=== PATIENT | female | born 1950 | race Caucasian/White ===

== ENCOUNTER → 2017-06-01 | Outpatient (CLI) | payer MEDICARE, BC ==
[2017-03-20 08:58] VITALS: BMI 29.9
[~2017-06-01] MED LIST: ALB17R IH; ALB17R INH; ALB18R INH; AMLO-99 PO; ASPI81TA15 PO; AZIT-18 PO; AZIT-9 PO; CALC400T60 PO; CALC667C8 PO; CELLC500PT PO; CEP500 PO; CEPH500C24 PO; CHOL200074 PO; CIN30PT PO; CINA60TA2 PO; CINA90TA2 PO; CIPR-344 PO; CLO1 PO; CLO5 PO; CLON-327 PO; CLON-393 PO; DIAZ-308 PO; DOCU-442 PO; FOLI1CAP PO; FOLI1CAP13 PO; FOLI1CAP19 PO; FUR80 PO; FURO-45 PO; FURO80TA PO; FURO80TA70 PO; FUROSEMIDE 160 MG PO; GAB100 PO; HYDR-2975 PO; HYDR-4309 PO; HYDR100T25 PO; IBUP-56 PO; INSU100C14 SQ; INSU100I35 SQ; INSU100V24 SQ; LABE200T31 PO; LANI SC; LANI SUBQ; MAGNESIUM PO; MECL25TA9 PO; MET50 PO; METO25TA89 PO; NIFE20CA8 PO; NPH,100V12 SQ; OMEP-114 PO; ONDA4TAB PO; OXYC-854 PO; PARICALCITOL IV; PER PO; POLY17PO25 PO; POT10 PO; POTA2.5T7 PO; PRAV10TA45 PO; PRAV10TA46 PO; PRE20 PO; PRE5 PO; PRO25 PO; SCOT TD; SENN8.6T37 PO; TACR1CAP15 PO; TUM500 PO; [UNRECOGNIZED DRUG - CODE] PO; [UNRECOGNIZED DRUG - CODE] PO; [UNRECOGNIZED DRUG - CODE] PO
[2017-06-01 09:39] LABS: PLATELET COUNT, AUTOMATED 176 K/uL (150-450)
== END ==
LOC: LAB 08:52
PROVIDERS: ATTEND Internal Medicine Nephrology
DX: Z94.0 Kidney transplant status (principal); E21.2 Other hyperparathyroidism; I10 Essential (primary) hypertension; D64.9 Anemia, unspecified; I25.10 Atherosclerotic heart disease of native coronary artery without angina pectoris
CPT/HCPCS: 36415; 80197; 82040; 82247; 82310; 82374; 82435; 82565; 82570; 82947; 83735; 83970; 84075; 84100; 84132; 84155; 84156; 84295; 84450; 84460; 84520; 85025

== ENCOUNTER → 2017-07-10 | Outpatient (CLI) | payer MEDICARE, BC ==
[2017-03-20 08:58] VITALS: BMI 29.9
== END ==
LOC: LAB 09:11
PROVIDERS: ATTEND Internal Medicine Nephrology
DX: E11.21 Type 2 diabetes mellitus with diabetic nephropathy (principal); Z79.4 Long term (current) use of insulin; Z94.0 Kidney transplant status
CPT/HCPCS: 36415; 82465; 83718; 84478; 87799

== ENCOUNTER → 2017-10-01 | Outpatient (CLI) | payer MEDICARE, BC ==
[2017-03-20 08:58] VITALS: BMI 29.9
[2017-10-01 09:23] LABS: PLATELET COUNT, AUTOMATED 174 K/uL (150-450)
== END ==
LOC: LAB 08:55
PROVIDERS: ATTEND Internal Medicine Nephrology
DX: I10 Essential (primary) hypertension (principal); Z94.0 Kidney transplant status; I25.10 Atherosclerotic heart disease of native coronary artery without angina pectoris; D64.9 Anemia, unspecified; E11.9 Type 2 diabetes mellitus without complications; R80.9 Proteinuria, unspecified; E21.2 Other hyperparathyroidism
CPT/HCPCS: 36415; 80197; 82040; 82247; 82310; 82374; 82435; 82565; 82570; 82947; 83735; 83970; 84075; 84100; 84132; 84155; 84156; 84295; 84450; 84460; 84520; 85025

== ENCOUNTER → 2017-12-20 | Outpatient (CLI) | payer MEDICARE, BC ==
[2017-03-20 08:58] VITALS: BMI 29.9
[~2017-12-20] MED LIST changes: -LABE200T31 PO; +LABE200T35 PO
[2017-12-20 09:39] LABS: PLATELET COUNT, AUTOMATED 160 K/uL (150-450)
== END ==
LOC: LAB 09:04
PROVIDERS: ATTEND Internal Medicine Nephrology
DX: I10 Essential (primary) hypertension (principal); I25.10 Atherosclerotic heart disease of native coronary artery without angina pectoris; Z94.0 Kidney transplant status; D64.9 Anemia, unspecified; E11.9 Type 2 diabetes mellitus without complications; R80.9 Proteinuria, unspecified; E21.2 Other hyperparathyroidism
CPT/HCPCS: 36415; 80197; 82040; 82247; 82310; 82374; 82435; 82565; 82570; 82947; 83735; 83970; 84075; 84100; 84132; 84155; 84156; 84295; 84450; 84460; 84520; 85025

== ENCOUNTER → 2018-04-25 | Outpatient (CLI) | payer MEDICARE, BC ==
[2017-03-20 08:58] VITALS: BMI 29.9
[~2018-04-25] MED LIST changes: +AMLO-113 PO; -AMLO-99 PO; -HYDR-4309 PO; +HYDR-653 PO
[2018-04-25 09:43] LABS: PLATELET COUNT, AUTOMATED 191 K/uL (150-450)
== END ==
LOC: LAB 09:10
PROVIDERS: ATTEND Internal Medicine Nephrology
DX: Z94.0 Kidney transplant status (principal); N18.2 Chronic kidney disease, stage 2 (mild); E83.52 Hypercalcemia; R80.9 Proteinuria, unspecified; I10 Essential (primary) hypertension; E11.22 Type 2 diabetes mellitus with diabetic chronic kidney disease; Z79.4 Long term (current) use of insulin; D64.9 Anemia, unspecified
CPT/HCPCS: 36415; 80197; 82040; 82247; 82310; 82374; 82435; 82565; 82570; 82947; 83735; 83970; 84075; 84100; 84132; 84155; 84156; 84295; 84450; 84460; 84520; 85025

== ENCOUNTER → 2018-07-03 | Outpatient (CLI) | payer MEDICARE, BC ==
[2017-03-20 08:58] VITALS: BMI 29.9
[~2018-07-03] MED LIST changes: -AMLO-113 PO; +AMLO-127 PO
--- NOTE | 2018-07-03 13:27 | RADIOLOGY IMAGING REPORT ---
FACILITY: [facility] PATIENT NAME: Jeannie Lomax : 1950 MR: [id number] V: [id number] EXAM DATE: ORDERING PHYSICIAN: GIOVANA LLAMAS TECHNOLOGIST: Location: [facility] - [place] Patient: Jeannie Lomax : 1950 Visit/Account:[id number] Date of Sevice: 07/03/2018 DEXA Scan Clinical history: Hyperparathyroidism. Comparison: DEXA scan from 10/05/2008. LUMBAR SPINE: The bone mineral density (BMD) measured from L1-L4 correlates with a Z-score of -0.7 and a T-score of -2.2 which is osteopenia as defined by the World Health Organization. The corresponding risk of fra cture in the lumbar spine is 4-6 times increased compared with a young adult reference population. T his value has decrease by 5.3 % since the prior study. More than 5% change is considered significant . HIP: Bone mineral density (BMD) measured in the LEFT total hip region correlates with a Z-score -1.9 and a T-score of -3.1 which is osteoporosis as defined by the World Health Organization. The correspondin g risk of fracture in the hip is 8-12 times increased compared to a young adult reference population. This value has decrease by 12.9 % since the prior study. More than 5% change is considered signific ant. T score left femoral neck -3.3 Bone mineral density (BMD) measured in the Femoral Neck region measures 0.584 g/cm?. IMPRESSION: 1. Lumbar spine: Osteopenia. There has been 5.3% decrease in the bone mineral density since the pre vious exam. 2. Left Total Hip: Osteoporosis. There has been 12.9% decrease in the bone mineral density since th e previous exam. 3. Femoral Neck: Bone Mineral Density is 0.584 g/cm? The next DEXA scan of this patient should include the following sites: L1-L4 and the left hip. FRAX? WHO Fracture Risk Assessment Tool link: <http://www.shef.ac.uk/FRAX/tool.jsp?locationValue=9> PLEASE NOTE: 1) The World Health Organization defines low BMD as follows: T-score Normal > -1 Osteopenia < -1 and > -2.5 Osteoporosis < -2.5 without fractures Established osteoporosis < -2.5 with fractures 2) In general, you may wish to consider: Diagnosis Treatment Follow-up DEXA Normal BMD Prevention 2-3 years Osteopenia Prevention/therapy 1-2 years Osteoporosis Therapy Yearly 3) Fracture risk estimated from the T-score is more accurate for vertebral fractures (often spontane ous) than for hip fractures. Report Dictated By: Luna Jeronimo MD at 07/03/2018 1:21 PM Report E-Signed By: Luna Jeronimo MD at 07/03/2018 1:23 PM WSN:[email or web address]
== END ==
LOC: RAD 05-29 02:54
PROVIDERS: ATTEND Internal Medicine Nephrology
DX: M85.88 Other specified disorders of bone density and structure, other site (principal); M81.0 Age-related osteoporosis without current pathological fracture
CPT/HCPCS: 77080

== ENCOUNTER → 2018-07-18 | Outpatient (CLI) | payer MEDICARE, BC ==
[2017-03-20 08:58] VITALS: BMI 29.9
== END ==
LOC: LAB 13:31
PROVIDERS: ATTEND Internal Medicine Nephrology
DX: E11.22 Type 2 diabetes mellitus with diabetic chronic kidney disease (principal); Z79.4 Long term (current) use of insulin; N18.2 Chronic kidney disease, stage 2 (mild); D64.9 Anemia, unspecified; I12.9 Hypertensive chronic kidney disease with stage 1 through stage 4 chronic kidney disease, or unspecified chronic kidney disease
CPT/HCPCS: 36415; 82310; 82570; 83970; 84080; 84156

== ENCOUNTER → 2018-08-23 | Outpatient (CLI) | payer MEDICARE, BC ==
[2017-03-20 08:58] VITALS: BMI 29.9
[2018-08-23 09:59] LABS: PLATELET COUNT, AUTOMATED 185 K/uL (150-450)
== END ==
LOC: LAB 09:35
PROVIDERS: ATTEND Internal Medicine Nephrology
DX: E78.2 Mixed hyperlipidemia (principal); I12.9 Hypertensive chronic kidney disease with stage 1 through stage 4 chronic kidney disease, or unspecified chronic kidney disease; E21.2 Other hyperparathyroidism; E11.22 Type 2 diabetes mellitus with diabetic chronic kidney disease; Z79.4 Long term (current) use of insulin; N18.2 Chronic kidney disease, stage 2 (mild); Z94.0 Kidney transplant status; Z79.899 Other long term (current) drug therapy
CPT/HCPCS: 36415; 80197; 82040; 82247; 82310; 82374; 82435; 82465; 82565; 82570; 82947; 83718; 83735; 83970; 84075; 84100; 84132; 84155; 84156; 84295; 84450; 84460; 84478; 84520; 85025

== ENCOUNTER → 2018-12-31 | Outpatient (CLI) | payer MEDICARE, BC ==
[2017-03-20 08:58] VITALS: BMI 29.9
[2018-12-31 10:03] LABS: PLATELET COUNT, AUTOMATED 183 K/uL (150-450)
== END ==
LOC: LAB 09:20
PROVIDERS: ATTEND Internal Medicine Nephrology
DX: E78.2 Mixed hyperlipidemia (principal); I10 Essential (primary) hypertension; E21.2 Other hyperparathyroidism; E11.22 Type 2 diabetes mellitus with diabetic chronic kidney disease; Z79.4 Long term (current) use of insulin; Z94.0 Kidney transplant status; Z79.899 Other long term (current) drug therapy
CPT/HCPCS: 36415; 80197; 82040; 82247; 82310; 82374; 82435; 82565; 82947; 83735; 84075; 84100; 84132; 84155; 84295; 84450; 84460; 84520; 85025

== ENCOUNTER → 2019-01-01 | Outpatient (REF) | payer MEDICARE, BC ==
[2017-03-20 08:58] VITALS: BMI 29.9
== END ==
LOC: ZZSENDIN 15:21
PROVIDERS: ATTEND Family Medicine
DX: I35.0 Nonrheumatic aortic (valve) stenosis (principal); R06.00 Dyspnea, unspecified; E11.69 Type 2 diabetes mellitus with other specified complication
CPT/HCPCS: 83880

== ENCOUNTER → 2019-01-07 | Outpatient (CLI) | payer MEDICARE, BC ==
[2017-03-20 08:58] VITALS: BMI 29.9
== END ==
LOC: US 01:29
PROVIDERS: ATTEND Internal Medicine Cardiovascular Disease
DX: I51.7 Cardiomegaly (principal); I34.0 Nonrheumatic mitral (valve) insufficiency; I35.1 Nonrheumatic aortic (valve) insufficiency
CPT/HCPCS: 93306

== ENCOUNTER → 2019-01-10 | Outpatient (CLI) | payer MEDICARE, BC ==
[2017-03-20 08:58] VITALS: BMI 29.9
--- NOTE | 2019-01-10 10:11 | RADIOLOGY IMAGING REPORT ---
FACILITY: [facility] - [place] PATIENT NAME: Jeannie Lomax : 1950 MR: [id number] V: [id number] EXAM DATE: ORDERING PHYSICIAN: GIOVANA LLAMAS TECHNOLOGIST: Location: [facility] - [place] Patient: Jeannie Lomax : 1950 Visit/Account:[id number] Date of Sevice: 01/10/2019 CHEST PA LAT Indication: Dyspnea Comparison: Chest x-ray 07/24/2016 Findings: Lungs: Prominent interstitial markings throughout both lungs are stable. There is no focal airspace o pacity. Mediastinum/pulmonary vasculature: Heart size is at the upper limits of normal. Bones/soft tissues: There is a stent in a vessel in the right axilla. IMPRESSION: Chronic interstitial changes both lungs. No acute airspace opacity or pneumonia. Report Dictated By: Devon Adan at 01/10/2019 10:00 AM Report E-Signed By: Devon Adan at 01/10/2019 10:02 AM WSN:[id number]
== END ==
LOC: RAD 09:13
PROVIDERS: ATTEND Internal Medicine Nephrology
DX: J84.89 Other specified interstitial pulmonary diseases (principal)
CPT/HCPCS: 71046